=== PATIENT | male | born 1980 | race Caucasian/White ===

== ENCOUNTER → 2019-01-08 | Outpatient (CLI) | payer OTHER ==
[2019-01-08 08:58] LABS: PLATELET COUNT 296 x10^3mcL (130-400)
[2019-01-08 08:59] LABS: BASOPHIL % 0.6 % (0-2)
[2019-01-08 09:40] LABS: ALKALINE PHOSPHATASE 92 U/L (46-116); ALT/SGPT 41 U/L (16-63); AST/SGOT 25 U/L (15-37); BILIRUBIN TOTAL 1.1 mg/dL (0.20-1.00); CALCIUM 9.2 mg/dL (8.5-10.1); CARBON DIOXIDE 28.9 mmol/L (21-32); CHLORIDE SERUM 102 mmol/L (98-107); CHOLESTEROL 166 mg/dL (<200); CHOLESTEROL/HDL RATIO 5.4; GFR1 > 60 mL/min; GLUCOSE SERUM 92 mg/dL (74-106); HDL CHOLESTEROL 31 mg/dL (40-60); SODIUM SERUM 138 mmol/L (136-145); TOTAL PROTEIN, SERUM 8.5 g/dL (6.4-8.2); TRIGLYCERIDES 170 mg/dL (<150)
== END | disposition home or self-care (01) ==
LOC: US 01-01 09:00
PROVIDERS: Internal Medicine
PROC: BW40ZZZ Ultrasonography of Abdomen (ICD-10-PCS; principal; 2019-01-08)
DX: Z00.00 Encounter for general adult medical examination without abnormal findings (principal); R10.10 Upper abdominal pain, unspecified; S83.422A Sprain of lateral collateral ligament of left knee, initial encounter; X58.XXXA Exposure to other specified factors, initial encounter; Y92.9 Unspecified place or not applicable

== ENCOUNTER 2019-01-10 11:13 | Emergency (ER) | payer OTHER ==
[~2019-01-10] VITALS: Ht 170.2 cm; Wt 89.1 kg
[2019-01-10 11:24] VITALS: Ht 170.2 cm; Wt 89.1 kg
[2019-01-10 13:05] VITALS: BP 117/87
== END 2019-01-10 13:05 | disposition home or self-care (01) ==
LOC: ED 11:13
DX: B34.9 Viral infection, unspecified (principal)
CPT/HCPCS: 83880; 87804

== ENCOUNTER 2019-06-20 14:09 | Emergency (ER) | payer OTHER ==
[~2019-06-20] VITALS: Ht 170.2 cm; Wt 87.1 kg
[2019-06-20 14:17] VITALS: BP 132/98; Ht 170.2 cm; Wt 87.1 kg
== END 2019-06-20 15:34 | disposition home or self-care (01) ==
LOC: ED 14:09
DX: L03.116 Cellulitis of left lower limb (principal); Z98.890 Other specified postprocedural states
CPT/HCPCS: J0696; Q0092

== ENCOUNTER 2019-06-23 08:39 | Emergency (ER) | payer OTHER ==
[~2019-06-23] VITALS: Ht 170.2 cm; Wt 86.2 kg
[2019-06-23 08:45] VITALS: BP 133/92
== END 2019-06-23 09:11 | disposition home or self-care (01) ==
LOC: ED 08:39
DX: L03.116 Cellulitis of left lower limb (principal)